=== PATIENT | male | born 1990 | race Caucasian/White ===

== ENCOUNTER 2021-08-24 13:30 | Emergency (ER) | payer OTHER, BC, SELFPAY ==
--- NOTE | 2021-08-24 15:32 | XR_ITS ---
WS: [id number] Exam: XR chest 1V portable [id number] Date/Time of Exam: 08/24/2021 3:32 PM Reason For Exam: sob No priors. The lungs are fully expanded and clear. Heart size is normal. The mediastinum and bony thorax are unr emarkable. No pleural effusions. XR/XR chest 1V portable [id number] IMPRESSION: 1. No acute cardiopulmonary finding.
[2021-08-24 15:59] VITALS: BP 158/87; PULSE 72; RESP 18; TEMP 36.8; O2SAT 98; BMI 25.8
--- NOTE | 2021-08-24 18:32 | ED_ITS ---
HPI - General Adult General: Chief complaint: General Medical Stated complaint: Exposed to covid, Sortness of breath Time Seen by Provider: 08/24/21 18:31 History of Present Illness: 31-year-old male with history of asthma presents emergency room with complaints of nonproductive cough, generalized weakness, fatigue, diarrhea, loss of taste and smell x2 days. Patient has positive COVID exposure 2 days ago and is concerned that he may have COVID. Patient has any shortness of breath, decreased p.o. intake nausea or vomiting. Other focal complaints at this time. Onset:2 days ago Duration:2 days Location:home Severity:mild Associated symptoms: Reports malaise and nausea; Deny chest pain, dyspnea, rash, palpitations or vomiting Review of Systems Const: Reports: fatigue and malaise; Denies: fever(s) or chills Eyes: Denies: change in vision ENMT: Reports: other (+loss of taste and smell); Denies: mouth pain Card: Denies: chest pain or palpitations Resp: Reports: non-productive cough; Denies: dyspnea GI: Reports: nausea and change in bowel habits; Denies: abdominal pain, vomiting or diarrhea : Denies: dysuria Musc: Denies: extremity pain Skin/Breast: Denies: rash or new lesions Neuro: Denies: weakness in extremities Psych: Reports: other (Normal mood) Delfino/Lymph: Denies: easy bruising PFS ED PFSH: Medical History (Updated 08/24/21 @ 18:38 by Rickey Jo MD) Asthma Social History (Updated 08/24/21 @ 18:38 by Rickey Jo MD) Smoking and tobacco status: never smoked Alcohol intake: never Substance/Drug Use: never Physical Exam Const: COMMON NORMALS: alert HENMT: COMMON NORMALS: atraumatic HEAD & SCALP: atraumatic MOUTH: moist mucous membranes not abnormal Eye: COMMON NORMALS: EOMs intact bilaterally and conjunctivae normal CONJUNCTIVA: Yes conjunctivae normal Neck/C-Spine: COMMON NORMALS: full ROM and supple Resp: COMMON NORMALS: normal respiratory effort and clear to auscultation bilaterally AUSCULTATION: clear to auscultation bilaterally Cardio: COMMON NORMALS: regular rate RATE: regular rate GI: COMMON NORMALS: Soft to palpation and non-tender PALPATION: Yes Soft to palpation Extremity: COMMON NORMALS: full ROM Neuro: SENSORIUM/ORIENTATION: Yes alert MOTOR EXAM: No Abnormal motor strength present and Other motor observations present (no focal motor deficits) Psych: COMMON NORMALS: speech normal SPEECH: Yes normal speech MOOD & A FFECT: Yes euthymic mood Course Vital Signs: Vital signs: Vital Signs Temperature 98.3 F 08/24/21 15:59 Pulse Rate 72 08/24/21 15:59 Respiratory Rate 18 08/24/21 15:59 Blood Pressure 158/87 08/24/21 15:59 Pulse Oximetry 98 08/24/21 15:59 MDM - General Adult Medical Decision Making 31-year-old male presents emergency with diarrhea, cough, generalized weakness, nasal congestion with headache, decrease in taste and smell. Symptoms are consistent with possible COVID. Patient is hemodynamically stable satting well. Patient has no signs of dehydration. X-ray chest clear. Patient will be swabbed for COVID and other viral infections. Rx tylenol PRN abd pain, maalox/pepcid PRN dyspepsia, and zofran PRN nausea/vomiting, albuterol PRN wheezing Disposition: Discharge. Patient counseled regarding diagnostic impression, treatment plan. Patient given ED strict return precautions to return for continuation, worsening, or development of new symptoms. Instructed to f/u w/ PCP regarding symptoms today. Patient verbalized understanding. Lab Data Radiology Impressions Chest X-Ray 08/24/21 15:32 IMPRESSION: 1. No acute cardiopulmonary finding. Imaging Data Other Imaging: Radiologist's impression: [address] [address] XRay Report Signed Patient: Ty Fragoso Unit #: [id number] : 1990 Age/Sex: 31 / M ADM Date: 08/24/21 Loc: ER Room/Bed: Attending Dr: Ordering Provider/Ordering MD: Bhanu Baumann MD Date of Service: 08/24/21 Procedure(s): XR chest 1V portable [id number] Accession Number(s): [id number] Report Number: [id number] WS: [id number] Exam: XR chest 1V portable [id number] Date/Time of Exam: 08/24/2021 3:32 PM Reason For Exam: sob No priors. The lungs are fully expanded and clear. Heart size is normal. The mediastinum and bony thorax are unremarkable. No pleural effusions. XR/XR chest 1V portable [id number] IMPRESSION: 1. No acute cardiopulmonary finding. ? Dictated By: Girma Gonzalez DO Signed By: Girma Gonzalez DO Signed Date/Time: 08/24/21 1551 DD/ 1549 Discharge Plan Discharge Patient Disposition: Home Clinical Impression: Cough, Diarrhea, Generalized weakness Condition: Stable Prescriptions: New acetaminophen 500 mg tablet 500 mg PO Q6H PRN (Reason: pain) 5 Days Qty: 20 0RF Pepcid 20 mg tablet 20 mg PO BID PRN (Reason: abdominal pain) 10 Days Qty: 20 0RF albuterol sulfate 90 mcg/actuation HFA aerosol inhaler 2 inh inhalation Q4H PRN (Reason: shortness of breath or wheezing) 5 Days Qty: 6.7 0RF ondansetron 4 mg tablet,disintegrating 4 mg PO TID PRN (Reason: nausea and vomiting) 4 Days Qty: 12 0RF Maalox Advanced 1,000-60 mg tablet,chewable 1 tab PO TID PRN (Reason: abdominal pain) 7 Days Qty: 21 0RF Discharge Orders: Discharge ED (Routine); Ordered 08/24/21 Ordered By: Rickey Jo Referrals: Jerry Rangel DO [Primary Care Provider] - Discharge Diet: Advance as tolerated Discharge Activity: Increase activity as tolerated Patient Instructions: COVID-19 (Coronavirus Disease 2019) (ED) Activity Restrictions/Additional Instructions: Come back to the emergency room if your symptoms worsen, have any shortness of breath, fever/chills, dehydration, inability tolerate food or drinks, any difficulty breathing, or any new or concerning complaints. 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
[2021-08-24 20:36] LABS: Adenovirus Not Detected (NOT DETECT); Chlamydia Pneumoniae Not Detected (NOT DETECT); Coronavirus 229E,HKU1,NL63,OC4 Not Detected (NOT DETECT); Human Metapneumovirus Not Detected (NOT DETECT); Human Rhinovirus/Enterovirus Not Detected (NOT DETECT); Influenza A Not Detected (NOT DETECT); Influenza A H1 Not Detected (NOT DETECT); Influenza A H1-2009 Not Detected (NOT DETECT); Influenza A H3 Not Detected (NOT DETECT); Influenza B Not Detected (NOT DETECT); Mycoplasma Pneumoniae Not Detected (NOT DETECT); Parainfluenza Virus Type 1 Not Detected (NOT DETECT); Parainfluenza Virus Type 2 Not Detected (NOT DETECT); Parainfluenza Virus Type 3 Not Detected (NOT DETECT); Parainfluenza Virus Type 4 Not Detected (NOT DETECT); Respiratory Syncytial Virus A Not Detected (NOT DETECT); Respiratory Syncytial Virus B Not Detected (NOT DETECT); SARS-COV-2 Detected (NOT DETECT)
== END 2021-08-24 18:47 | disposition home or self-care (01) ==
PROVIDERS: Emergency Provider Emergency Medicine; PCP Family Medicine
DX: U07.1 COVID-19 (principal)
CPT/HCPCS: 71045; 87635; 99283

== ENCOUNTER 2022-01-17 20:00 | Outpatient (CLI) | payer OTHER, SELFPAY | END 2022-01-17 20:01 | disposition home or self-care (01) | LOC: SLEEP 01-18 06:38 | PROVIDERS: PCP Family Medicine; Visit Provider Family Medicine | DX: G47.33 Obstructive sleep apnea (adult) (pediatric) (principal) | CPT/HCPCS: 95811 ==

== ENCOUNTER 2022-09-09 19:21 | Emergency (ER) | payer OTHER, SELFPAY ==
[2022-09-09 19:29] VITALS: BP 161/104; PULSE 75; RESP 18; TEMP 36.8; O2SAT 95; BMI 35.2
[2022-09-09 19:33] VITALS: PULSE 77; O2SAT 94; O2SAT 95
--- NOTE | 2022-09-09 19:39 | W.ED.GIBLEED ---
HPI - GI Bleed General: Chief complaint: GI Bleed Stated complaint: blood in stool, n/v , abdomen pain Time Seen by Provider: 09/09/22 19:28 Source: patient Mode of arrival: ambulatory Limitations: no limitations History of Present Illness: 32-year-old male states since Friday has been having some abdominal pain also had nausea vomiting diarrhea. He states he had some bright red blood in his stool as well. History of diverticulitis along with hemorrhoid states blood minimal about states pain is a 4 out of 10 he denies any worsening improving factors denies any fevers. Associated symptoms: Reports abdominal pain, nausea and vomiting; Denies chills, fever(s), headache(s) or rash Review of Systems Const: Denies: fever(s), chills, body aches or change in appetite ENMT: Denies: throat pain or dental pain Card: Denies: chest pain Resp: Denies: dyspnea GI: Reports: abdominal pain, nausea and vomiting; Denies: diarrhea : Denies: dysuria Musc: Denies: neck pain or back pain Skin/Breast: Denies: rash Neuro: Denies: headache(s) PFSH ED PFSH: Medical History Asthma Social History Smoking and tobacco status: never smoked Alcohol intake: never Substance/Drug Use: never Physical Exam Const: COMMON NORMALS: patient oriented x3 HENMT: COMMON NORMALS: normocephalic and atraumatic HEAD & SCALP: normocephalic and atraumatic Eye: COMMON NORMALS: conjunctivae normal CONJUNCTIVA: Yes conjunctivae normal Neck/C-Spine: COMMON NORMALS: full ROM and supple Chest: COMMONS NORMALS: normal inspection of the chest and normal palpation of entire chest wall Resp: COMMON NORMALS: normal respiratory effort, No retractions, No use of accessory muscles and clear to auscultation bilaterally AUSCULTATION: clear to auscultation bilaterally Cardio: COMMON NORMALS: regular rate, regular rhythm and No murmurs present (Cardio) RATE: regular rate RHYTHM: regular rhythm GI: COMMON NORMALS: Normal to inspection, nondistended, normoactive bowel sounds present, Soft to palpation, non-tender and no masses PALPATION: Yes Soft to palpation Extremity: COMMON NORMALS: normal to inspection and full ROM Neuro: COMMON NORMALS: patient oriented x3, moves all extremities and no focal motor deficits Psych: COMMON NORMALS: mental status grossly normal, Normal thought process present and cooperative THOUGHT PROCESS: Normal thought process present Skin: COMMON NORMALS: no rashes or lesions noted and no wounds GENERAL SKIN EXAM: no rashes or lesions noted Course Vital Signs: Vital signs: Vital Signs Temperature 98.2 F 09/09/22 19:29 Pulse Rate 77 09/09/22 19:33 Respiratory Rate 18 09/09/22 19:41 Blood Pressure 161/104 09/09/22 19:29 Pulse Oximetry 94 09/09/22 19:33 Oxygen Delivery Me thod Room Air 09/09/22 19:33 MDM - GI Bleed Medical Decision Making Patient presents here with vomiting has had some diarrhea his abdominal exam here is benign he is very minimal tenderness no signs of diverticulitis his hemoglobin here is normal he has no signs of severe bleeding he is more worried about his vomiting he does feel improved after Zofran we will prescribe him Zofran for home he is to follow-up with PCP and return if worsening. Medical Records I reviewed the patient's medical records. Lab Data I reviewed the patient's lab results. 09/09/22 19:40 09/09/22 19:40 Laboratory Results WBC 10.0 10^3/uL (4.0-10.0) 09/09/22 19:40 RBC 5.31 10^6/uL (4.1-5.3) H 09/09/22 19:40 Hgb 15.2 g/dL (11.7-16.6) 09/09/22 19:40 Hct 46.4 % (42.0-52.0) 09/09/22 19:40 MCV 87.4 fl (80-94) 09/09/22 19:40 MCH 28.6 pg (28.0-34.0) 09/09/22 19:40 MCHC 32.8 g/dL (30.0-36.0) 09/09/22 19:40 RDW 12.7 % (12.1-15.1) 09/09/22 19:40 Plt Count 387 10^3/cmm (130-400) 09/09/22 19:40 MPV 10.2 fL (7.4-10.4) 09/09/22 19:40 Neut % (Auto) 58.1 % 09/09/22 19:40 Lymph % (Auto) 23.8 % 09/09/22 19:40 [place] % (Auto) 9.0 % 09/09/22 19:40 Eos % (Auto) 7.8 % 09/09/22 19:40 Baso % (Auto) 0.8 % 09/09/22 19:40 Neut # (Auto) 5.83 10^3/uL (1.8-7.7) 09/09/22 19:40 Lymph # (Auto) 2.4 10^3/uL (0.8-4.8) 09/09/22 19:40 [place] # (Auto) 0.9 10^3/uL (0.2-0.9) 09/09/22 19:40 Eos # (Auto) 0.8 10^3/uL (0.0-0.8) 09/09/22 19:40 Baso # (Auto) 0.1 10^3/uL (0.0-0.1) 09/09/22 19:40 Nucleated RBC % (auto) 0 % 09/09/22 19:40 Nucleated RBCs # 0.0 /100WBC 09/09/22 19:40 Sodium 136 mmol/L (136-145) 09/09/22 19:40 Potassium 3.3 mmol/L (3.5-5.1) L 09/09/22 19:40 Chloride 99 mmol/L (98-107) 09/09/22 19:40 Carbon Dioxide 28 mmol/L (22-29) 09/09/22 19:40 Anion Gap 12.3 (5-19) 09/09/22 19:40 BUN 8 mg/dL (6-20) 09/09/22 19:40 Creatinine 0.8 mg/dL (0.7-1.2) 09/09/22 19:40 GFR Calculation 110.7 mL/min (90-130) 09/09/22 19:40 Glucose 94 mg/dL (65-115) 09/09/22 19:40 Calculated Osmolality 280 mOsm/kg (285-295) L 09/09/22 19:40 Calcium 9.1 mg/dL (8.5-10.5) 09/09/22 19:40 Total Bilirubin 0.3 mg/dL (0.15-1.2) 09/09/22 19:40 AST 18 U/L (0-40) 09/09/22 19:40 ALT 23 U/L (0-41) 09/09/22 19:40 Alkaline Phosphatase 108 U/L (40-130) 09/09/22 19:40 Total Protein 7.4 g/dL (6.6-8.7) 09/09/22 19:40 Albumin 4.1 g/dL (3.5-5.2) 09/09/22 19:40 Globulin 3.3 g/dL (1.3-4.6) 09/09/22 19:40 Lipase 24 U/L (13-60) 09/09/22 19:40 Urine Color Yellow (Yellow) 09/09/22 19:53 Urine Appearance Clear (CLEAR) 09/09/22 19:53 Urine pH 6 (5-7) 09/09/22 19:53 Ur Specific [place] 1.030 (1.005-1.030) 09/09/22 19:53 Urine Protein Neg (Negative) 09/09/22 19:53 Urine Glucose (UA) Norm (Normal) 09/09/22 19:53 Urine Ketones Negative (Negative) 09/09/22 19:53 Urine Blood Neg (Negative) 09/09/22 19:53 Urine Nitrate Negative (Negative) 09/09/22 19:53 Urine Bilirubin Neg (Negative) 09/09/22 19:53 Urine Urobilinogen Neg mg/dL (Negative) 09/09/22 19:53 Ur Leukocyte Esterase Negative (Negative) 09/09/22 19:53 Discharge Plan Discharge Patient Disposition: Home Clinical Impression: Bloody diarrhea, Vomiting Condition: Stable Prescriptions: New hydrocodone-acetaminophen 5-325 mg tablet 1 tab PO Q6H PRN (Reason: pain) Qty: 14 0RF ondansetron 4 mg tablet,disintegrating 4 mg PO Q6H PRN (Reason: nausea and vomiting) Qty: 14 0RF No Action lamotrigine 25 mg tablet 50 mg PO BID All Day Allergy (cetirizine) 10 mg capsule 10 mg PO DAILY montelukast 10 mg tablet 10 mg PO DAILY duloxetine 20 mg capsule,delayed release(DR/EC) 40 mg PO BID atorvastatin 20 mg tablet 20 mg PO DAILY albuterol sulfate 90 mcg/actuation HFA aerosol inhaler 2 puff inhalation Q6H PRN fluticasone propion-salmeterol 250-50 mcg/dose blister with device 1 inh inhalation BID Discharge Orders: Discharge ED (Routine); Ordered 09/09/22 Ordered By: Mary Mendenhall Referrals: Marissa Vilchis MD [Primary Care Provider] - 1-3 days Discharge Diet: Advance as tolerated Discharge Activity: Resume usual activity Patient Instructions: Gastrointestinal Bleeding (ED), Acute Nausea and Vomiting (ED) 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
[2022-09-09 19:41] VITALS: RESP 18
[2022-09-09] MEDS: ondansetron 2 mg/ML SDV 2 mL 4 MG IVP (19:41)
[2022-09-09] MEDS: morphine 4 mg/mL SDV 1 mL IVP (19:41)
[2022-09-09] MEDS: sodium chloride 0.9% 1,000 ML 999 ML IV (19:41)
[2022-09-09 20:00] LABS: Basophils # 0.1 10^3/uL (0.0-0.1); Basophils % 0.8 %; Eosinophils # 0.8 10^3/uL (0.0-0.8); Eosinophils % 7.8 %; Hematocrit 46.4 % (42.0-52.0); Hemoglobin 15.2 g/dL (11.7-16.6); Lymphocytes # 2.4 10^3/uL (0.8-4.8); Lymphocytes % 23.8 %; Mean Corpuscular HGB Conc 32.8 g/dL (30.0-36.0); Mean Corpuscular Hemoglobin 28.6 pg (28.0-34.0); Mean Corpuscular Volume 87.4 fl (80-94); Mean Platelet Volume 10.2 fL (7.4-10.4); Monocytes # 0.9 10^3/uL (0.2-0.9); Neutrophils # 5.83 10^3/uL (1.8-7.7); Neutrophils % 58.1 %; Nucleated Red Blood Cells % 0 %; Platelet Count 387 10^3/cmm (130-400); Red Blood Count 5.31 10^6/uL (4.1-5.3); Red Cell Distribution Width 12.7 % (12.1-15.1)
[2022-09-09 20:06] LABS: Add Urine Microscopic? NO; Charge for UA Resulting for Rev
[2022-09-09 20:07] LABS: Bilirubin Urine Neg (Negative); Blood Urine Neg (Negative); Glucose Urine UA Norm (Normal); Ketones Urine Negative (Negative); Leukocyte Esterase Urine Negative (Negative); Nitrate Urine Negative (Negative); Protein Urine Neg (Negative); Urine Appearance Clear (CLEAR); Urine Color Yellow (Yellow); Urobilinogen Urine Neg (Negative); pH Urine 6 (5-7)
[2022-09-09 20:21] LABS: Alanine Aminotransferase 23 U/L (0-41); Albumin Level 4.1 g/dL (3.5-5.2); Alkaline Phosphatase 108 U/L (40-130); Anion Gap 12.3 (5-19); Aspartate Amino Transferase 18 U/L (0-40); Blood Urea Nitrogen 8 mg/dL (6-20); Calcium 9.1 mg/dL (8.5-10.5); Carbon Dioxide 28 mmol/L (22-29); Chloride 99 mmol/L (98-107); Globulin 3.3 g/dL (1.3-4.6); Glomerular Filtration Rate 110.7 mL/min (90-130); Glucose 94 mg/dL (65-115); Lipase 24 U/L (13-60); Osmolality Calculated 280 mOsm/kg (285-295); Potassium 3.3 mmol/L (3.5-5.1); Sodium 136 mmol/L (136-145); Total Bilirubin 0.3 mg/dL (0.15-1.2); Total Protein 7.4 g/dL (6.6-8.7)
[2022-09-09 20:56] VITALS: BP 132/91; PULSE 52; RESP 16; O2SAT 96
== END 2022-09-09 20:57 | disposition home or self-care (01) ==
PROVIDERS: Emergency Provider Emergency Medicine; PCP Family Medicine
DX: R19.7 Diarrhea, unspecified (principal); R19.5 Other fecal abnormalities; R11.10 Vomiting, unspecified; J45.909 Unspecified asthma, uncomplicated; Z79.899 Other long term (current) drug therapy
CPT/HCPCS: 80053; 81003; 83690; 85025; 96361; 96374; 96375; 99284; J2270; J2405; J7030

== ENCOUNTER → 2023-03-10 08:48 | Outpatient (BNVA) | payer OTHER, SELFPAY | PROVIDERS: PCP Family Medicine; Visit Provider Specialist | DX: M25.561 Pain in right knee (principal); G89.29 Other chronic pain; M06.9 Rheumatoid arthritis, unspecified | CPT/HCPCS: 36415; 73560; 73565; 80053; 85025; 85651; 86140; 86160; 86162; 86200; 86235; 86255; 86376; 86431; 99204 ==

== ENCOUNTER 2023-04-08 12:34 | Outpatient (CLI) | payer OTHER, SELFPAY ==
--- NOTE | 2023-04-08 12:36 | MR_ITS ---
WS: [id number] MRI KNEE ARTHROGRAM PRE AND POST CONTRAST. COMPARISON: None Multiplanar, multisequence imaging is performed with and without intra-articular contrast. Precontrast imaging: Normal appearance of the ACL and PCL. No meniscal tear. No marrow edema or fract ure. No significant joint effusion. Patellar cartilage is intact. There is abnormal signal and shape posterior horn medial meniscus involving the free edge and the superior tickler surface consistent wi th a meniscal tear. There is abnormal signal with enlargement of the semimembranosus tendon. There is increased T2 signal centrally. No full-thickness tear is identified. Favor there is a very minor injury but the thicknes s of the semitendinosis is abnormal. There is also small amount of fluid adjacent to the semimembrano herber and semitendinosis tendons. 5 mm loose body noted within the injected contrast adjacent to the me dial femoral condyle. Postcontrast imaging: Meniscal tear involving the posterior medial horn. The tear fills with contrast after injection. This tear is towards the intercondylar notch. No additional meniscal tear. No ACL o r PCL tear. IMPRESSION: 1. Torn posterior horn medial meniscus involving the free edge in the subarticular surface towards t he intercondylar notch. 2. Semimembranous tendon is enlarged with increased T2 signal centrally consistent with a mild sprai n. No tear identified. 3. No significant joint effusion. 4. There is a small loose body seen best on the postcontrast imaging in the injected contrast adjace nt to the lateral femoral condyle.
--- NOTE | 2023-04-08 13:00 | IR_ITS ---
WS: [id number] RIGHT KNEE ARTHROGRAM (FLUOROSCOPY) RIGHT knee arthrogram was performed in fluoroscopy prior to MRI evaluation. HISTORY: right knee pain, positive Maria Antonia's COMPARISON: None. FLUOROSCOPY TIME: 0min [id number] # of spot films: 1 Procedure, risks and complications were explained to the patient. Complications include but not limit ed to bleeding, infection and contrast reaction. Current medications are reviewed. Skin is cleansed with ChloraPrep. Skin is anesthetized with 1% buffered lidocaine. 22-gauge needle is inserted into the patellofemoral joint space. Approximately 40 cc of gadolinium mixture injected wit hout complication. Patient will proceed to MRI evaluation immediately. No complications were encountered. Patient is instructed to watch for post procedure infection or ble eding. Patient is also instructed to contact the radiology department with any concerns. IMPRESSION: Uncomplicated RIGHT knee joint injection prior to MR arthrogram.
== END 2023-04-08 12:35 | disposition home or self-care (01) ==
LOC: RAD 12:34
PROVIDERS: PCP Family Medicine; Visit Provider Specialist
DX: S83.206A Unspecified tear of unspecified meniscus, current injury, right knee, initial encounter (principal); S86.811A Strain of other muscle(s) and tendon(s) at lower leg level, right leg, initial encounter; X58.XXXA Exposure to other specified factors, initial encounter; Y93.9 Activity, unspecified; Y92.9 Unspecified place or not applicable; Y99.9 Unspecified external cause status; M23.41 Loose body in knee, right knee; M25.561 Pain in right knee
CPT/HCPCS: 27369; 73723; 77002; A9577; Q9966

== ENCOUNTER → 2023-04-23 10:28 | Outpatient (BNVA) | payer OTHER, SELFPAY | PROVIDERS: PCP Family Medicine; Visit Provider Specialist | DX: M17.11 Unilateral primary osteoarthritis, right knee (principal); M23.306 Other meniscus derangements, unspecified meniscus, right knee | CPT/HCPCS: 20610; 99214; J7326 ==

== ENCOUNTER 2023-05-29 09:17 | Outpatient (CLI) | payer OTHER, SELFPAY ==
--- NOTE | 2023-05-29 09:24 | US_ITS ---
WS: [id number] RIGHT UPPER QUADRANT ULTRASOUND HISTORY: DIARRHEA/IBS/SICK AFTER GREASY FOODS COMPARISON: None available. Liver: 14.8 cm in length. Poor visualization of the liver due to body habitus. Mild coarse echotextur e is likely from hepatic steatosis. No mass or bile duct dilatation. Portal Vein: Normal hepatopetal flow with monophasic waveform. Gallbladder: Normally distended gallbladder with no stones or wall thickening. CBD: 0.4 cm Pancreas: Not visualized. Right kidney: 10.6 cm in length. Normal size and echogenicity. No hydronephrosis or mass. Aorta and IVC: Unremarkable abdominal aorta and IVC. No ascites. IMPRESSION: 1. Technically difficult evaluation of the RIGHT upper quadrant due to body habitus. 2. Gallbladder appears negative.
== END 2023-05-29 09:18 | disposition home or self-care (01) ==
LOC: RAD 09:18
PROVIDERS: PCP Family Medicine; Visit Provider Family Medicine
DX: R19.7 Diarrhea, unspecified (principal)
CPT/HCPCS: 76705